=== PATIENT | female | born 1965 ===

== ENCOUNTER 2017-09-25 03:42 | Emergency (ER) | payer SELFPAY ==
[2017-09-25] MEDS: IPRATROPIUM (NEB) 0.5 MG/2.5 ML AMP NEB (04:50)
[2017-09-25] MEDS: ALBUTEROL 0.083% (NEB) 2.5 MG/3 ML AMP NEB (04:50)
[2017-09-25] MEDS: HYDROCODONE/APAP (10/325) TAB PO (06:03)
[2017-09-25] MEDS: KETOROLAC 60 MG INJ IM (06:04)
== END 2017-09-25 06:14 | disposition home or self-care (01) ==
LOC: FTE 03:42
DX: S29.011A Strain of muscle and tendon of front wall of thorax, initial encounter (principal); J20.9 Acute bronchitis, unspecified; F17.210 Nicotine dependence, cigarettes, uncomplicated; R07.9 Chest pain, unspecified; R05 Cough; X58.XXXA Exposure to other specified factors, initial encounter; Y92.9 Unspecified place or not applicable
CPT/HCPCS: 71045; 93005; 94664; 96372; 99284-25